=== PATIENT | male | born 1960 | race Caucasian/White ===

== ENCOUNTER → 2017-09-07 | Outpatient (CLI) | payer MEDICAID, SELFPAY | PROVIDERS: Family Provider Family Medicine; Visit Provider Internal Medicine | DX: J43.9 Emphysema, unspecified (principal); J44.1 Chronic obstructive pulmonary disease with (acute) exacerbation; C34.91 Malignant neoplasm of unspecified part of right bronchus or lung | CPT/HCPCS: 71250; 94010 ==

== ENCOUNTER → 2017-10-10 15:24 | Outpatient (POV) | payer MEDICAID, SELFPAY | PROVIDERS: Family Provider Family Medicine; PCP Internal Medicine; Visit Provider Internal Medicine | DX: Z00.00 Encounter for general adult medical examination without abnormal findings (principal) ==

== ENCOUNTER → 2017-11-28 10:04 | Outpatient (CLI) | payer MEDICAID, SELFPAY ==
[2017-11-28 10:46] LABS: Blood Urea Nitrogen 22 mg/dL (7-18); Creatinine,Serum 0.85 mg/dL (0.70-1.30); Estimated Glomerular Filt Rate 93 ml/min (>60); GFR (African American) 113 ML/MIN (>60)
== END ==
PROVIDERS: Visit Provider Internal Medicine
DX: C34.91 Malignant neoplasm of unspecified part of right bronchus or lung (principal)
CPT/HCPCS: 36415; 82565; 84520

== ENCOUNTER → 2017-11-29 10:37 | Outpatient (CLI) | payer OTHER, MEDICAID, SELFPAY ==
--- NOTE | 2017-11-29 10:41 | CT_ITS ---
CT chest w con HISTORY: Follow-up lung cancer ITS.REASON: LUNG CA ORDERING PHYSICIAN: Blaze Yanez MD PATIENT AGE: 57 years TECHNIQUE: Axial images obtained following the administration of 75 mL of Isovue 370 . Sagittal, and coronal reformatted images are also generated and reviewed. COMPARISON: 09/07/2017 FINDINGS: No mediastinal or hilar mass or adenopathy. Coronary artery calcifications are present. No evidence of effusion. Diffuse centrilobular and paraseptal emphysematous changes are present with scattered areas of parenchymal scarring. Previously noted opacity in the right apex is somewhat less apparent measuring 5 mm previously 7 mm. The previously noted nodule in the right upper lobe posteriorly also appears somewhat less bulky with a persistent small cavitary component. The nodular opacity in the central aspect of the right upper lobe is slightly less bulky on the axial measurement measuring 5 mm transverse previously measuring 8 mm transverse. Nodular opacity in the central aspect of the right upper lobe slightly smaller measuring 6 mm previously at 7 mm. Bullous changes are present in the right middle lobe. The previously noted pleural-based opacity in the right lung base posterior laterally has improved. There is now a similar area of parenchymal opacification with cystic changes in the right lung base posteriorly consistent with inflammatory/infectious changes. Previously noted mass in the left upper lobe is smaller measuring 8 mm previously at 20 mm. Nodular density just inferior to this region is slightly smaller at 6 mm previously 9 mm. No new nodules are evident. No effusions. No acute bony anomalies. There is prominence of the trachea IMPRESSION: Multiple pulmonary nodular opacities once again noted and have decreased in size compared to the previous exam. Please see above for detail. Specifically, the suspicious nodule in the left upper lobe has decreased from 20 mm to 8 mm. This could be due to improvement in pulmonary metastasis if there has been interval treatment. This could also be due to improvement in inflammatory or infectious nodules. The subpleural cavitary parenchymal opacity in the right lung base posterolaterally has resolved however, there is a new area of subpleural parenchymal density with cavitation in the right lung base posteriorly probably related to underlying infectious/inflammatory changes. Emphysema, tracheomegaly.
--- NOTE | 2017-11-29 11:04 | CT_ITS ---
CT abdomen pelvis w con CLINICAL INDICATION: Lung cancer, evaluate for metastatic disease ITS.REASON: LUNG CANCER ORDERING PHYSICIAN: Blaze Yanez MD PATIENT AGE: 57 years COMPARISON: 06/16/2017 TECHNIQUE: Axial images obtained with sagittal and coronal reformats. PROCEDURE: Oral Contrast: Redicat IV Contrast: 75 mL's of Isovue-370 performed in conjunction with chest CT. FINDINGS: Small retrocrural lymph nodes are once again identified not significant changed. No focal liver lesion evident. The spleen, adrenal glands, and pancreas are unremarkable. No renal mass or obstructing renal or ureteral calculi. There is a moderate amount retained colonic feces. No intestinal obstruction or free air. No pelvic mass or focal inflammatory change or abnormal fluid collection. Unremarkable appearing appendix. No evidence of diverticulitis. No bony destructive process. IMPRESSION: 1. Overall stable CT appearance of the abdomen and pelvis with no convincing evidence of metastatic disease. 2. Small retrocrural lymph nodes are once again noted not significantly changed.
--- NOTE | 2017-11-29 15:21 | [facility].ITSHM ---
LORAZEPAM DERAMITHOSOME MUCINEX OXYCODONE FENTANYL PATCH NEBULIZER
== END ==
PROVIDERS: Family Provider Family Medicine; PCP Internal Medicine; Visit Provider Internal Medicine
DX: C34.91 Malignant neoplasm of unspecified part of right bronchus or lung (principal)
CPT/HCPCS: 71260; 74177; Q9967

== ENCOUNTER → 2018-02-22 09:05 | Outpatient (CLI) | payer OTHER, MEDICAID, SELFPAY ==
[2018-02-22 09:31] LABS: Blood Urea Nitrogen 13 mg/dL (7-18); Creatinine,Serum 0.71 mg/dL (0.70-1.30); Estimated Glomerular Filt Rate 115 ml/min (>60); GFR (African American) 139 ML/MIN (>60)
--- NOTE | 2018-02-22 09:41 | CT_ITS ---
CT abdomen pelvis w con CLINICAL INDICATION: Follow-up lung cancer ITS.REASON: LUNG CA ORDERING PHYSICIAN: Blaze Yanez MD PATIENT AGE: 57 years COMPARISON: 11/29/2017 TECHNIQUE: Axial images obtained with sagittal and coronal reformats. All CT scans at the facility use one or more dose reduction, viz: automated exposure control; ma/kV adjustment per patient size (including targeted exams where dose is matched to indication; i.e. head); or iterative reconstruction technique. PROCEDURE: Oral Contrast: Redicat IV Contrast: 75 mL's of Isovue-370. FINDINGS: The liver, spleen, adrenal glands, pancreas, and kidneys have an unremarkable appearance. No intestinal obstruction or free air. No abdominal or retroperitoneal or pelvic adenopathy. No evidence of appendicitis or diverticulitis. Small retrocrural lymph nodes are once again noted unchanged. No acute bony anomalies. IMPRESSION: Overall stable CT of appearance of the abdomen and pelvis with no convincing evidence of metastatic disease. Stable small retrocrural lymph nodes in the lower chest
--- NOTE | 2018-02-22 09:41 | CT_ITS ---
CT chest w con HISTORY: Follow-up lung cancer ITS.REASON: LUNG CA ORDERING PHYSICIAN: Blaze Yanez MD PATIENT AGE: 57 years COMPARISON: 11/29/2018 TECHNIQUE: Axial images obtained following the administration of 75 mL of Isovue 370 . Sagittal, and coronal reformatted images are also generated and reviewed. All CT scans at the facility use one or more dose reduction, viz: automated exposure control; ma/kV adjustment per patient size (including targeted exams where dose is matched to indication; i.e. head); or iterative reconstruction technique. FINDINGS: No mediastinal or hilar mass or adenopathy. No evidence of aortic aneurysm, dissection, or central pulmonary embolus. Normal heart size. No evidence of pericardial effusion. Coronary artery calcifications are present Diffuse centrilobular emphysema with scattered pulmonary fibrotic changes are once again noted. Bullous changes are present in the right lower lung zone. There is a stable 7 mm nodular opacity in the central aspect of the right lower lobe. There is a stable irregular parenchymal opacity in the right upper lobe posteriorly at approximately 15 mm. There is increasing septal thickening with small areas of cavitation/bronchiectasis in the right lower lobe anteriorly with persistent and somewhat improved septal thickening and cavitation within the right lower lobe posteriorly.. There is a focal irregular parenchymal opacity in the left upper lobe at 3.5 x 1.7 cm a central cavitation which is developed in the interval. There are small lymph nodes in the periaortic region along the descending thoracic aorta. No pleural effusions. IMPRESSION: 1. Severe centrilobular emphysema with pulmonary fibrosis. There are stable nodular densities as described above 2. New areas of cavitation in the left upper lobe and right lower lobe which may be due to underlying infectious process. Neoplasm not completely excluded. The septal thickening and cavitation in the right lower lobe posteriorly has shown some mild improvement.
== END ==
PROVIDERS: Family Provider Family Medicine; PCP Family Medicine; Visit Provider Internal Medicine
DX: C34.91 Malignant neoplasm of unspecified part of right bronchus or lung (principal)
CPT/HCPCS: 36415; 71260; 74177; 82565; 84520; Q9967